=== PATIENT | female | born 1995 | race Two or more races ===

== ENCOUNTER → 2024-10-16 | Outpatient (CLI) | payer BC, SELFPAY ==
--- NOTE | 2024-10-16 08:16 | XR_ITS ---
Examination: Pelvic ultrasound, transabdominal, complete Technique: Transabdominal ultrasound of the pelvis performed using grayscale imaging Date and time of exam: October 16, 2024 0839 hours INDICATIONS: Spontaneous October 04, 2024 with pelvic pain beginning 12 days ago COMPARISON: April 17, 2024 FINDINGS: Uterus 8.2 x 3.3 x 4.7 cm Mass or intrauterine gestation Endometrial sign 0.2 cm Right ovary 3.6 x 1.3 x 4.3 cm arterial flow, 17 mm x 16 mm cyst Left ovary 3.1 x 1.7 x 2.5 cm arterial flow IMPRESSION: No uterine mass or intrauterine gestation Negative for retained products of conception
[2024-10-16 09:34] LABS: Basophils % (Auto) 0 % (0-2.5); Eosinophils % (Auto) 1 % (0-10); Hematocrit 37.7 % (36.0-46.0); Hemoglobin 12.8 g/dL (12.0-16.0); Immature Granulocytes % (Auto) 0 % (0-0); Immature Granulocytes Auto 0.02 Thou/mm3 (0.00-0.00); Lymphocytes # (Auto) 2.1 Thou/mm3 (1.0-4.8); Lymphocytes % (Auto) 29 % (10-50); Mean Corpuscular Hemoglobin 28.6 pg (25.0-35.0); Mean Corpuscular Volume 84 fL (80-100); Monocytes # (Auto) 0.4 Thou/mm3 (0.0-0.8); Monocytes % (Auto) 5 % (0-12); Neutrophils # (Auto) 4.7 Thou/mm3 (1.8-7.7); Neutrophils % (Auto) 65 % (37-80); Nucleated Red Blood Cell % 0 /100 WBC (0); Platelet Count 376 Thou/mm3 (140-440); RDW Standard Deviation 38.1 fL (36.4-46.3); Red Blood Count 4.47 Miln/mm3 (4.00-5.20); White Blood Count 7.3 Thou/mm3 (3.6-11.0)
[2024-10-16 09:53] LABS: Beta HCG,Quantitative 92 mIU/mL (<5.0)
== END | disposition home or self-care (01) ==
LOC: CDIM 08:01 → COPL 08:54
PROVIDERS: PCP Nurse Practitioner Family; Referring Provider Nurse Practitioner Family; Visit Provider Radiology Diagnostic Radiology
DX: O03.9 Complete or unspecified spontaneous abortion without complication (principal); D64.9 Anemia, unspecified
CPT/HCPCS: 36415; 76856; 84702; 85025